=== PATIENT | male | born 1960 | race Caucasian/White ===

== ENCOUNTER → 2017-06-25 | Outpatient (CLI) | payer OTHER ==
[~2017-06-25] VITALS: Ht 170.2 cm; Wt 124.5 kg
[~2017-06-25] MED LIST: AMBIEN 10MG10 MG PO; ATIVAN 0.50.5 MG/TAB PO; FLONASEALLERGY NS; LIPITOR 10MG10 MG PO; LOPID 600M600 MG/TAB PO; ZOFRAN 4MG T4 MG/TAB PO; ZOLOFT 50MG50 MG PO
[2017-06-25 08:45] VITALS: BP 160/100; PULSE 76
== END ==
LOC: LIGHT 07:56
DX: R73.01 Impaired fasting glucose (principal); E78.5 Hyperlipidemia, unspecified; I10 Essential (primary) hypertension; G47.33 Obstructive sleep apnea (adult) (pediatric); Z68.41 Body mass index [BMI] 40.0-44.9, adult; Z71.3 Dietary counseling and surveillance

== ENCOUNTER → 2017-07-08 | Outpatient (CLI) | payer OTHER | LOC: LIGHT 14:57 | DX: Z01.89 Encounter for other specified special examinations (principal) ==

== ENCOUNTER → 2017-07-22 | Outpatient (CLI) | payer OTHER ==
[~2017-07-22] VITALS: Ht 170.2 cm; Wt 126.3 kg
[~2017-07-22] MED LIST changes: +GLUCOPHAGE500 MG/TAB PO
[2017-07-22 16:59] VITALS: BP 164/102; PULSE 84
== END ==
LOC: LIGHT 09:24
DX: R73.01 Impaired fasting glucose (principal); E78.5 Hyperlipidemia, unspecified; I10 Essential (primary) hypertension; G47.33 Obstructive sleep apnea (adult) (pediatric); Z68.41 Body mass index [BMI] 40.0-44.9, adult; Z71.3 Dietary counseling and surveillance
CPT/HCPCS: G0463

== ENCOUNTER → 2017-08-19 | Outpatient (CLI) | payer OTHER ==
[~2017-08-19] VITALS: Ht 170.2 cm; Wt 125.0 kg
[2017-08-19 16:41] VITALS: BP 138/80; PULSE 72
== END ==
LOC: LIGHT 08-15 10:08
DX: R73.01 Impaired fasting glucose (principal); E78.5 Hyperlipidemia, unspecified; I10 Essential (primary) hypertension; G47.33 Obstructive sleep apnea (adult) (pediatric); Z68.41 Body mass index [BMI] 40.0-44.9, adult; Z71.3 Dietary counseling and surveillance
CPT/HCPCS: G0463

== ENCOUNTER → 2017-09-01 | Outpatient (CLI) | payer OTHER | LOC: LIGHT 15:51 | DX: Z01.818 Encounter for other preprocedural examination (principal) ==

== ENCOUNTER → 2017-09-16 | Outpatient (CLI) | payer OTHER ==
[~2017-09-16] VITALS: Ht 170.2 cm; Wt 126.1 kg
[~2017-09-16] MED LIST changes: +ADIPEX-P37.5 MG PO
[2017-09-16 16:44] VITALS: BP 142/88; PULSE 76
== END ==
LOC: LIGHT 09:06
DX: R73.01 Impaired fasting glucose (principal); E78.5 Hyperlipidemia, unspecified; I10 Essential (primary) hypertension; G47.33 Obstructive sleep apnea (adult) (pediatric); Z68.41 Body mass index [BMI] 40.0-44.9, adult; Z71.3 Dietary counseling and surveillance
CPT/HCPCS: G0463

== ENCOUNTER → 2017-09-22 | Outpatient (CLI) | payer OTHER | LOC: BHSO 08:48 | DX: Z01.818 Encounter for other preprocedural examination (principal) ==

== ENCOUNTER → 2017-10-14 | Outpatient (CLI) | payer OTHER ==
[~2017-10-14] VITALS: Ht 170.2 cm; Wt 121.8 kg
[2017-10-14 15:48] VITALS: BP 112/70; PULSE 64
== END ==
LOC: LIGHT 15:19
DX: R73.01 Impaired fasting glucose (principal); E78.5 Hyperlipidemia, unspecified; I10 Essential (primary) hypertension; G47.33 Obstructive sleep apnea (adult) (pediatric); Z68.41 Body mass index [BMI] 40.0-44.9, adult; Z71.3 Dietary counseling and surveillance
CPT/HCPCS: G0463

== ENCOUNTER → 2017-10-31 | Outpatient (CLI) | payer OTHER | LOC: BHSO 15:45 | DX: F33.1 Major depressive disorder, recurrent, moderate (principal) ==

== ENCOUNTER → 2017-11-17 | Outpatient (CLI) | payer OTHER ==
[~2017-11-17] VITALS: Ht 170.2 cm; Wt 119.1 kg
[2017-11-17 13:47] VITALS: BP 140/86; PULSE 60
== END ==
LOC: LIGHT 13:43
DX: E66.01 Morbid (severe) obesity due to excess calories (principal); Z68.41 Body mass index [BMI] 40.0-44.9, adult; Z71.3 Dietary counseling and surveillance
CPT/HCPCS: G0463

== ENCOUNTER 2019-11-17 18:46 | Emergency (ER) | payer OTHER ==
[~2019-11-17] VITALS: Ht 172.7 cm; Wt 120.5 kg
[2019-11-17 18:54] VITALS: BP 161/103; PULSE 79; TEMP 98
[2019-11-17] MEDS ORDERED: NORCO 325 MG-51 TAB PO (19:55)
[2019-11-17] MEDS ORDERED: CEPHALEXIN500 M1 PO (19:55)
== END 2019-11-17 20:19 | disposition home or self-care (01) ==
LOC: COL.ER 18:46
DX: S61.311A Laceration without foreign body of left index finger with damage to nail, initial encounter (principal); Z79.51 Long term (current) use of inhaled steroids; W23.0XXA Caught, crushed, jammed, or pinched between moving objects, initial encounter; Y92.59 Other trade areas as the place of occurrence of the external cause